=== PATIENT | female | born 1980 | race Caucasian/White ===

== ENCOUNTER 2022-05-06 07:05 | Emergency (ER) | payer SELFPAY ==
[2022-05-06 09:00] LABS: BLOOD UREA NITROGEN,BUN 11 mg/dL (7.0-18.0); CARBON DIOXIDE,CO2 24.9 mmol/L (21.0-32.0); CHLORIDE,CL 105 mmol/L (98-107); ESTIMATED GFR 94 mL/min (>60); GLUCOSE RANDOM 138 mg/dL (74-106); POTASSIUM,K 3.5 mmol/L (3.5-5.1); SODIUM,NA 139 mmol/L (136-145)
== END 2022-05-06 12:12 ==
LOC: MW.ED 07:05
DX: Z02.89 Encounter for other administrative examinations (principal); Z20.822 Contact with and (suspected) exposure to COVID-19
CPT/HCPCS: 36415; 80053; 80305-QW; 80307; 81001; 84443; 84702; 85025; 93005; 93010; 99283; U0002

== ENCOUNTER 2023-05-01 16:50 | Emergency (ER) | payer SELFPAY | END 2023-05-01 18:15 | LOC: MW.ED 16:50 | DX: Z13.9 Encounter for screening, unspecified (principal) | CPT/HCPCS: 99282; 99283 ==